=== PATIENT | female | born 1980 | race Caucasian/White ===

== ENCOUNTER 2022-08-02 12:31 | Emergency (ER) | payer OTHER, SELFPAY ==
[2022-08-02 12:31] VITALS: BP 135/96; PULSE 89; RESP 18; TEMP 36.2; O2SAT 98; O2SAT 99; BMI 37.2
--- NOTE | 2022-08-02 12:36 | VDLE_ITS ---
Reason For Study: Pain RIGHT LEFT CFV is compressible, spontaneous, phasic, GSV is normal. competent and demonstrates normal CFV is compressible, spontaneous, phasic, augmentation. competent, and demonstrates normal Procedure augmentation. This is a venous duplex using B-mode, color FV is compressible, spontaneous, phasic, flow and spectral Doppler. competent and demonstrates normal Exam performed portable in ED. augmentation. A preliminary report was called and/or faxed POP V is compressible, spontaneous, phasic, to Dr. Boyle. competent and demonstrates normal augmentation. T/P Trunk is compressible. PTV is compressible. LT PerV is compressible. VL/Venous Duplex US, Unilateral Interpretation Summary There is no evidence of left lower extremity deep vein thrombosis. Left great s aphenous vein appears patent and compressible segmentally. Normal flow patterns right common femoral vein Ordering Physician: Cee Boyle Performed By: Kimmie Carrasco, RENETTA, RVT
--- NOTE | 2022-08-02 12:40 | ED.VIS.LOWEX ---
HPI History of Present Illness Chief Complaint: Lower Extremity Injury Detail of Chief Complaint: Left calf pain Informant: patient Narrative Narrative: Patient presents the emergency department complaint left calf pain times about 3 weeks. Patient states that she developed some discomfort 3 to 4 weeks ago. Then it felt like while she was having discomfort there she was walking the dog and felt a pop in her calf and neck cause more pain discomfort which started to get better until yesterday when she tried to play softball and again felt a similar pop in her calf and had a hard time walking secondary to pain. She denies recent travel or recent surgery. No history of PE or DVT. She is not on oral contraceptive. She is not a smoker. Patient went to urgent care this morning for evaluation and was referred to the emergency department to rule out DVT. PFSH PFSH Home Medications fluoxetine 20 mg capsule mg 08/02/22 [History Last Taken Unknown] pantoprazole 40 mg tablet,delayed release mg PO 08/02/22 [History Last Taken Unknown] Allergy/AdvReac Type Severity Reaction Status Date / Time amoxicillin Allergy Hives Verified 02/18/17 14:51 Social History Smoking Status: Never smoker ROS ROS ED Review of Systems ROS Unobtainable: other Constitutional Constitutional ED: Reports lethargy; Denies chills, fever(s), sweats or weight loss Eyes Eyes: Denies blurry vision, change in vision or diplopia ENT ENT ED: Denies rhinorrhea or sore throat Cardiovascular Cardiovascular: Denies chest pain, orthopnea or racing heartbeat Respiratory/Chest Respiratory/Chest: Denies cough, dyspnea, dyspnea on exertion, orthopnea or sputum Gastrointestinal Gastrointestinal: Denies abdominal pain, diarrhea, nausea or vomiting Genitourinary Genitourinary ED: Denies dysuria, hematuria or urinary frequency Musculoskeletal Musculoskeletal: Reports other Details: Left calf pain ; Denies arthralgias, back pain, myalgias or neck pain Integumentary Denies abscess, Abrasions or rash Neurologic Neurologic: Denies headache(s) or weakness Psychiatric Psychiatric: Denies anxiety, depression or suicidal thoughts Endocrine Endocrinology: Denies polydipsia, polyphagia or polyuria Hematologic/Lymphatic Hematologic/Lymphatic: Denies easy bleeding, easy bruising or lymphadenopathy Allergic/Immunologic Allergic/Immunologic ED: Denies mouth swelling, tongue swelling or urticaria EXAM Physical Exam Const Vital Signs: 08/02/22 12:31 08/02/22 12:31 Temperature 97.1 F L 97.1 F L Temperature Source Temporal Temporal Pulse Rate 89 89 Respiratory Rate 18 18 Blood Pressure 135/96 H 135/96 H Blood Pressure Mean 109 109 Pulse Ox 99 98 Oxygen Delivery Method Room Air Room Air Positive well nourished and well developed General Appearance ED: well developed and NAD HEENT Reports TM's clear and moist mucous membranes normocephalic and atraumatic; Negative for trauma or tenderness Tympanic Membrane ED: Yes TM's clear Eyes PERRL and EOMs intact bilaterally General Eye ED: Negative for pale conjunctiva or scleral icterus Neck no lymphadenopathy, supple and no JVD General: Negative for tenderness Chest Wall inspection of chest normal and palpation of chest normal Chest: Negative for tenderness Resp normal respiratory effort and clear to auscultation bilaterally Effort and Inspection: Negative for respiratory distress or pain with movement Auscultation: Negative for rhonchi, wheezes or diminished lung sounds Cardio regular rate, regular rhythm, S1 normal heart sound, S2 normal heart sound and no murmurs Peripheral Pulses: pulses 2+ throughout GI normal to inspection, nondistended, normoactive bowel sounds, soft to palpation, non-tender, non-distended and no masses Back/Spine no CVA tenderness and no thoracic nor lumbar tenderness Extremity Extremity Narrative: Patient with tenderness palpation over the left calf. No tenderness over the Achilles and no defect in the Achilles noted. There is no ecchymosis or bruising noted there is no erythema or warmth. No ropes or cords palpated. Positive Homans' sign. Neurovascular intact distally. General Extremety ED: Negative for edema General Extremity: Negative for edema Neuro oriented x3, CN's II-XII intact bilaterally, no sensory deficits noted and gait normal Sensorium / Orientation: awake, alert, oriented to person, oriented to place and oriented to time Motor Exam: strength 5/5 throughout and strength abnormal Psych mental status grossly normal Skin no rashes or lesions noted and no wounds MDM MDM MDM Narrative Medical decision making narrative: Patient presents with right calf pain for 3 to 4 weeks. Venous Doppler obtained was negative for DVT. Clinically I suspect a muscle strain. She will be given an Manan wrap. She not want crutches. She will use ibuprofen or Tylenol for discomfort. She is given referral to orthopedics for follow-up within the next 5 to 7 days. Discharge Plan Triage Chief Complaint: Lower Extremity Injury ED Provider: Cee Boyle Dx/Rx/DC Orders Clinical Impression: Strain of right calf muscle Instructions: ED Muscle Strain, Extremity Prescriptions: No Action pantoprazole 40 mg tablet,delayed release (DR/EC) PO Label Comments: TAKE 1 TABLET BY MOUTH DAILY fluoxetine 20 mg capsule Primary Care Provider: Nadege Calderón Referrals: Saroj An DO [Med Staff - Active Staff] - 5-7 Days Care Physician,No Primary [Non-Staff] - Disposition Disposition: Home, Self Care
[2022-08-02 13:42] VITALS: RESP 16
== END 2022-08-02 13:43 | disposition home or self-care (01) ==
PROVIDERS: Emergency Provider Emergency Medicine; PCP Internal Medicine; Visit Provider Emergency Medicine
DX: S86.112A Strain of other muscle(s) and tendon(s) of posterior muscle group at lower leg level, left leg, initial encounter (principal); X58.XXXA Exposure to other specified factors, initial encounter
CPT/HCPCS: 93971; 99282

== ENCOUNTER → 2022-12-01 | Outpatient (CLI) | payer OTHER, SELFPAY ==
[2022-12-01 13:15] LABS: Absolute Lymphocyte Count 1.06 X10^3/uL (0.83-4.51); Absolute Neutrophil Count 3.4 X10^3/uL (2.0-7.7); Basophil# 0.05 X10^3/uL; Eosinophil# 0.13 X10^3/uL; Eosinophils% 2.5 % (0-5); Hematocrit 45.7 % (37-47); Hemoglobin 14.8 g/dL (12.0-15.0); Lymphocyte # 1.06 X10^3/ul (0.83-4.51); Lymphocyte % 20.5 % (19-41); Mean Corp Hgb Conc 32.4 g/dL (32-36); Mean Corpuscular Hgb 29.4 pg (27.0-32.0); Mean Corpuscular Volume 90.7 fL (81-99); Mean Platelet Vol. 11.3 fl (6.2-12.0); Monocyte# 0.49 X10^3/uL; Monocyte% 9.5 % (0-10); NRBC Flagged by Analyzer 0 % (0-5); Neutrophil # 3.43 X10^3/uL (2.7-7.7); Neutrophil % 66.1 % (47-70); POSITIVE COUNT YES; Platelet Count 259 K/mm3 (150-450); RBC Distribution Width CV 12.8 % (11.6-14.6); RBC Distribution Width SD 42.2 fl (35.1-43.9); Red Blood Count 5.04 M/mm3 (4.2-5.4); White Blood Count 5.2 K/mm3 (4.4-11.0)
[2022-12-01 13:39] LABS: Estradiol 90.2 pg/mL; Follicle Stimulating Hormone 5.1 mIU/mL; Luteinizing Hormone 9.3 mIU/mL; Prolactin 5.7 ng/mL; T4 Free Direct 0.89 ng/dL (0.76-1.46); Thyroid Stim Hormone (TSH) 0.87 uIU/mL (0.358-3.74)
[2022-12-01 13:58] LABS: Differential Indicated SCAN CRITERIA MET
[2022-12-01 14:00] LABS: Differential Comment SCANNED
== END | disposition home or self-care (01) ==
LOC: WOBLAB 12:10
PROVIDERS: PCP Internal Medicine; Visit Provider Nurse Practitioner Women's Health
DX: R10.2 Pelvic and perineal pain (principal)
CPT/HCPCS: 36415; 82670; 83001; 83002; 84146; 84439; 84443; 85025

== ENCOUNTER → 2023-01-05 | Outpatient (CLI) | payer OTHER, SELFPAY ==
--- NOTE | 2023-01-05 | POL_PTH ---
PATIENT: YUNI PINEDA LOC: [facility] U#:[id number] AGE/SX: 42/F ROOM: RE01/05/[address]: Dr. Lilly Beaver DO : 1980 BED: DIS: 01/05/2023 SPEC #: [id number] RECD: 01/06/23 10:39 STATUS: LEIDY REMateus #: [id number] VIOLET: 01/05/23 00:[address]: Lilly Beaver DEPT: SURGICAL PATHOLOGY RECD BY: Philip Jackman ENTERED: 01/06/23 10:40 SP TYPE: Polyp OTHR DR: Dr. Nadege Calderón MD Tissues: Uterine cervix, NOS Procedures: Surgery Specimen Level IV HEADER OPERATION: Cervical polypectomy PRE-OP DIAGNOSIS: Cervical polyp TISSUE SUBMITTED: Cervical polyp MICROSCOPIC DIAGNOSIS Cervical polyp, biopsy: Fragments of benign polypoid endocervical tissue, mildly inflamed. AM:grace 01/07/2023 MICROSCOPIC DESCRIPTION Slides are reviewed. GROSS DESCRIPTION Received is one container labeled with the patient's name and not further designated. The specimen consists of multiple fragments of hemorrhagic soft tissue mixed with loja mucoid tissue that in aggregate measure 3.0 x 2.5 x 0.3 cm. The specimen is totally submitted in one cassette. / SJ:grace 01/06/2023 TC:3 CPT: 34306
== END | disposition home or self-care (01) ==
LOC: WOBLAB 14:51
PROVIDERS: PCP Internal Medicine; Visit Provider Student in an Organized Health Care Education/Training Program
DX: N84.1 Polyp of cervix uteri (principal)
CPT/HCPCS: 88305

== ENCOUNTER 2023-07-30 08:03 | Day surgery (SDC) | payer OTHER, SELFPAY ==
--- NOTE | 2023-07-06 17:26 | HP.PCM_ITS ---
History and Physical Date of Admission: 07/30/23 HPI: The patient is a 43 year old female presenting for pre-operative visit. She is scheduled for LAVH with bilateral salpingectomy and possible cystoscopy, for menorrhagia, dysmenorrhea and submucosal uterine fibroid, and post endometrial ablation syndrome on 07/30/23. Procedure discussed along with risks, benefits and complications. Other alternatives discussed for management. Consent form signed? Yes. ? ? PAST MEDICAL HISTORY PAST MEDICAL HISTORY Diagnosis Date ? Degenerative disk disease ? ? lumbar spine, left leg symptoms ? History of seasonal allergies ? ? Irregular menses ? ? Migraine ? ? Sessile serrated polyp of colon 2021 ? ? PAST SURGICAL HISTORY PAST SURGICAL HISTORY Procedure Laterality Date ? COLONOSCOPY SCREENING ? 03/23/2022 ? Sessile serrated polyp ? EGD W/O BRSH SPEC VARICIES INJ ? 03/23/2022 ? Normal ? ENDOMETRIAL ABLTJ THERMAL W/O HYSTEROSCOPIC GUID ? 11/05/2014 ? D&C, hydrothermal ablation ? ESSURE ? 04/26/2007 ? EXTRACTION, ERUPTED TOOTH OR EXPOSED ROOT (ELEVATION AND/OR FORCEPS REMOVAL) ? 04/26/1996 ? PAST SURGICAL HISTORY OF ? 01/05/2023 ? cervical polpyectomy ? RETROGRADE URETHROGRAM ? ? ? sterilization ? ? ? CURRENT MEDICATIONS Current Outpatient Medications Medication Sig Dispense Refill ? levocetirizine (XYZAL) 5 mg tablet Take 1 tablet by mouth once daily. 30 tablet 11 ? pantoprazole DR (PROTONIX) 40 mg tablet Take 1 tablet by mouth once daily. 90 tablet 1 ? fluticasone (FLONASE) 50 mcg/actuation nasal spray Use 2 Sprays in each nostril once daily. Rinse mouth after use. 1 Each 2 ? No current facility-administered medications for this visit. ? ? ALLERGIES: Amoxicillin, Bactrim [Sulfamethoxazole], and Wellbutrin [Bupropion H cl] ? PERSONAL HISTORY: SOCIAL HISTORY Social History ? Tobacco Use ? Smoking status: Never ? Smokeless tobacco: Never Vaping Use ? Vaping Use: Never used Substance Use Topics ? Alcohol use: No ? Drug use: No ? FAMILY HISTORY: FAMILY HISTORY FAMILY HISTORY Problem Relation Age of Onset ? Stroke Mother 69 ? No Known Problems Father ? ? No Known Problems Sister ? ? Hypertension Brother ? ? Hypertension Brother ? ? Heart Brother ? ? Dementia Maternal Grandmother ? ? Alzheimer's Disease Maternal Grandmother ? ? Cancer Maternal Grandfather ? ? stomach ? Colon Cancer Paternal cousin ? ? ? REVIEW OF SYMPTOMS: GENERAL: denies fevers or chills ENDOCRINOLOGY: has not been on steroids Cardiology : denies palpitations or chest pain Respiratory: denies SOB or cough Hematology: denies history of prolonged bleeding or easy bruising or VTE Allergy: Denies history of personal or family history of allergy to anesthesia ? PHYSICAL EXAMINATION: ? VITALS: Blood pressure 110/74, pulse 97, height 5' 0.5 (1.537 m), weight 200 lb (90.7 kg), last menstrual period 05/30/2023, SpO2 98%. ? GENERAL: The patient is well nourished, well hydrated in no acute distress. , The patient is oriented to time, place, and person. LUNGS: Clear to auscultation bilaterally. no wheezes, rhonchi or rales HEART: Regular rate and rhythm, Normal heart sounds, and No murmurs or gallops ? Endometrial biopsy from 05/05/2023 shows benign endometrium with stromal and glandular breakdown ? Pelvic ultrasound from 03/29/2023 shows uterus 9.3 x 5.5 x 6.1 cm that is retroverted. Endometrial complex 1.5 cm. Anterior submucosal uterine fibroid 2.8 x 2.5 x 2.6 cm. Ovaries are both normal in size and appearance. ? IMPRESSION: Abnormal uterine bleeding, submucosal uterine fibroid, post endometrial ablation syndrome, dysmenorrhea ? PLAN: The risks/benefits/alternatives and personal involved for the planned laparoscopic assisted vaginal hysterectomy with bilateral salpingectomy and possible cystoscopy were reviewed with the patient. Her questions were answered to her satisfaction and she desires to proceed. Consent was signed. I reviewed with her postop instructions and expectations. ? ? I have reviewed and updated past medical and surgical history, medications and allergies Assessment & Plan Assessment/Plan (1) Abnormal uterine bleeding (AUB): (2) Post endometrial ablation syndrome: (3) Dysmenorrhea: (4) Submucous uterine fibroid:
--- NOTE | 2023-07-22 14:05 | EKG12_ITS ---
Test Reason : PRE-OP Blood Pressure : / mmHG Vent. Rate : 081 BPM Atrial Rate : 081 BPM P-R Int : 136 ms QRS Dur : 072 ms QT Int : 406 ms P-R-T Axes : 038 005 031 degrees QTc Int : 471 ms Normal sinus rhythm with sinus arrhythmia Nonspecific ST abnormality Abnormal ECG Confirmed by VANDA CERDA, LUIS ([id number]), development editor DANIEL SHIELDS ([id number]) on 07/23/2023 5:56:10 AM Referred By: Nadege Calderón Confirmed By:LUIS DC MD
[2023-07-22 14:24] LABS: Hematocrit 41.9 % (37-47); Mean Corp Hgb Conc 33.4 g/dL (32-36); Mean Corpuscular Hgb 30.2 pg (27.0-32.0); Mean Corpuscular Volume 90.5 fL (81-99); Mean Platelet Vol. 9.9 fl (6.2-12.0); Platelet Count 400 K/mm3 (150-450); RBC Distribution Width SD 42.3 fl (35.1-43.9); Red Blood Count 4.63 M/mm3 (4.2-5.4); White Blood Count 9.7 K/mm3 (4.4-11.0)
[2023-07-22 14:27] LABS: Internal QC Validated? YES +Cl - CLEAR BKGD; Pregnancy, Urine Negative Negative; Record Kit Lot#,Urine Preg HCG0000718086
[2023-07-30] VITALS (11 sets, daily range): BP systolic 118–141; BP diastolic 69–95; PULSE 65–84; RESP 12–18; TEMP 36.5–37; O2SAT 96–100; BMI 37.8
--- NOTE | 2023-07-30 | HYST_PTH ---
PATIENT: YUNI PINEDA [place] [facility] [place][id number] AGE/SX: 43/F ROOM: RE07/30/[address]: Dr. Mihaela Mendez MD : 1980 BED: DIS: 07/30/2023 SPEC #: [id number] RECD: 07/30/23 14:53 STATUS: LEIDY REMateus #: [id number] VIOLET: 07/30/23 00:[address]: Mihaela Mendez DEPT: SURGICAL PATHOLOGY RECD BY: Sachin Hare ENTERED: 08/02/23 10:29 SP TYPE: HYSTERECT OTHR DR: Dr. Nadege Calderón MD Tissues: Uterus, NOS Procedures: Surgery Specimen Level V HEADER OPERATION: ERAS, hysterectomy, LAVH, bilateral salpingectomy PRE-OP DIAGNOSIS: Abnormal uterine bleeding, Post endometrial ablation syndrome, Dysmenorrhea, Submucous uterine fibroid TISSUE SUBMITTED: Uterus, Cervix, Bilateral fallopian tubes MICROSCOPIC DIAGNOSIS Uterus, hysterectomy: Cervix - Nabothian cysts and minimal chronic inflammation Endometrium - Disordered proliferative endometrium Myometrium - Leiomyoma and adenomyosis Right and left fallopian tubes- Benign paratubal cysts AM/mr 08/03/23 MICROSCOPIC DESCRIPTION Slides are reviewed. GROSS DESCRIPTION Received in fixative is one container labeled with the patient's name and designated uterus. The specimen consists of a uterus with attached cervix and detached fallopian tubes. The uterus with cervix measures 9.0 x 7.0 x 5.5 cm and weighs 136 gm. The ectocervix is unremarkable. The cervical os is oval in contour. The anterior serosal surface is ulcerated in an area measuring 4.0 x 4.0cm. The endocervical canal measures 2.8 cm in length and is grossly unremarkable. The elongated endometrial cavity measures 3.5 x 3.0 cm. The reddish-loja, velvety, glistening endometrium measures up to 0.2 cm in thickness. The myometrium measures approximately 2.0 cm in average thickness. No mass lesions are identified. Present free in the specimen container is an ovoid rubbery loja-white mass measuring 4.0 x 2.5 x 2.5 cm in grossly resembling a leiomyoma. Serial sections of this nodule reveal homogenous loja-white cut surfaces without areas of cyst formation, necrosis or hemorrhage. The right and left fallopian tubes have an average length of 4.0 cm and an average diameter of 0.6 cm. Fimbrial ends appear to be grossly unremarkable. One fallopian tube contains a paratubal cyst measuring 0.8 cm and containing clear fluid. Helicopter Pilot sections are submitted in 10 cassettes as follows: 1 - anterior cervix, 2 - posterior cervix, 3 & 4 - anterior uterine wall, 5 & 6 - posterior uterine wall, 7-8 - Nodule free in the container, 9 - Fallopian tube without paratubal cyst, 10 - Fallopian tube with paratubal cyst. / AM: 08/02/23 TC:1 CPT: 59964
[2023-07-30] MEDS: Magnesium 1 GM over 15 mins IV (08:37)
[2023-07-30] MEDS: Lactated Ringers 1,000 ML 40 ML IV (08:37)
[2023-07-30] MEDS: Scopolamine 1mg/72hr Patch 1 PATCH TD (08:38)
[2023-07-30] MEDS: Enoxaparin 40 MG/0.4 ML Syringe SC (08:39)
[2023-07-30] MEDS: Celecoxib 200 MG Capsule 400 MG PO (08:39)
[2023-07-30] MEDS: Phenazopyridine 95 MG Tablet 190 MG PO (08:39)
[2023-07-30] MEDS: Gabapentin 600 MG Tablet PO (08:39)
[2023-07-30] MEDS: Acetaminophen 500 MG Tablet 1000 MG PO (08:40)
[2023-07-30 08:46] LABS: Internal QC Validated? YES +Cl - CLEAR BKGD; Pregnancy, Urine Negative Negative; Record Kit Lot#,Urine Preg HCG0000718086
[2023-07-30 09:09] LABS: Bedside Glucose 83 mg/dL (74-106)
[2023-07-30] MEDS: Cefazolin 2 GM in 0.9% Normal Saline (100mL Bag) 100 ML IV (10:48)
[2023-07-30] MEDS: dexAMETHasone 4 MG/ML Vial 8 MG IV (10:53)
[2023-07-30] MEDS: Lidocaine 1%/Epi 1:200 (30ml) 30 ML AMPUL (11:40)
[2023-07-30] MEDS: Ondansetron 4 MG/2 ML Vial IV (12:20)
[2023-07-30] MEDS: Bupivacaine Mpf 0.5% 30 ML VIAL (12:24)
--- NOTE | 2023-07-30 12:28 | PCM.OPRPT ---
Report of Operation Date of Procedure: 07/30/23 Pre-Operative Diagnosis: Abnormal uterine bleeding, uterine fibroid, postendometrial ablation syndrome Post-Operative Diagnosis: same Surgery/Procedure Performed:: LAVH, bilateral salpingectomy Description of Surgical Findings:: enlarged boggy uterus, normal cervix and vagina Surgeon: Mihaela Mendez binding cutter synthetic cloth: Kary Rodriguez Type of Anesthesia: General Anesthesiologist: Carmelo Sanchez Special Medications: none Specimen's removed: uterus, cervix, bilateral fallopian tubes Drains: none Estimated Blood Loss (mL): 50 Fluids Replaced: 1400 Description of Procedure: The patient was taken to the operating room where she was prepped and draped in the dorsal lithotomy position. Her arms were tucked to the side and padded and her legs were placed in the yellowfin stirrups. Care was taken to ensure that she was placed in a neurologically safe and neutral position. A weighted speculum was placed in the vagina and the anterior lip of the cervix was grasped with a single-tooth tenaculum. The uterus sounded to 8 centimeters. The ZAccela uterine manipulator was placed and secured. The Sheppard catheter was placed to straight drain. Attention was turned to the abdominal portion of the case. Before skin incisions were made they were infiltrated with 0.5% Marcaine solution for local anesthetic. A 5 mm intraumbilical incision was made and while tenting the anterior abdominal wall up with towel clamps a 5 mm blade less trocar and sleeve were advanced directly into the peritoneal cavity using the Visiport. Peritoneal placement was confirmed with the laparoscope the pneumoperitoneum was created, and the underlying abdominal contents were intact. The patient was placed in Trendelenburg and the above findings were noted. Right and left lateral 5 mm trochars were placed under direct visualization without difficulty. The antimesenteric portion of the tube was clamped sealed and transected serially on both sides with the LigaSure device. The round ligaments were clamped sealed and transected and a window was made in the peritoneum. The utero-ovarian ligaments were then clamped, sealed and transected with the LigaSure device and the pedicles were hemostatic The bladder flap was dissected down with the LigaSure device and blunt dissection and the uterine arteries were then skeletonized. The uterine arteries were clamped, sealed and transected on both sides with the LigaSure device. At this point the pedicles were all examined and found to be hemostatic. Attention was turned to the vaginal portion of the case. 1% lidocaine with dilute epinephrine solution was used to infiltrate the anterior vaginal epithelium over the cervix. An incision was made from 3 to 9:00 across the anterior vaginal epithelium and the vaginal epithelium was dissected back with blunt sharp dissection. The anterior colpotomy incision was made. The vaginal epithelium on each side of the cervix at 3 and 9:00 was clamped, transected and suture ligated. The next pedicle contained the anterior peritoneum and part of the cardinal ligament. The pedicle was was clamped with a Whitney clamp, transected and suture-ligated. Hemostasis was noted. The uterine fundus was brought through the anterior colpotomy incision. The uterosacral ligaments and vaginal cuff were secured with Whitney clamps. The pedicles were transected. The uterus and cervix were then amputated and removed. The pedicles were secured with an 0 Vicryl suture. At this point, the pedicles were all examined and hemostasis was assured. A [id number] was needed in the midline and the vaginal cuff between the uterosacrals to tack the peritoneum down to the posterior vaginal wall. The vaginal cuff was then closed in a horizontal fashion with interrupted 0 Vicryl [id number] sutures. Care was taken to secure the vagina to the uterosacral ligaments. A sponge stick was placed in the vagina to help place traction against the vaginal cuff. The laparoscope was reinserted into the abdomen and the pneumoperitoneum was re-created. The pedicles were reexamined and found to be hemostatic. The vaginal cuff was hemostatic. There was a small amount of bleeding from the left side, it was just oozing. Some hemoblast was placed over this and a wet Telfa was used to hold pressure for 2 minutes. The site was then hemostatic. Suction dressage instructor had been used before this to irrigate all the pedicles and ensure there is no active bleeding. Hemoblast was then placed over the vaginal cuff and the pedicles. The right and left lateral ports were taken out and the sites were hemostatic. The pneumoperitoneum was released and even under low pressure there was no bleeding of any of the pedicles are vaginal cuff. The umbilical port was removed. The umbilical skin incisions were closed with Monocryl suture and skin glue. The vaginal instruments were removed by me and a vaginal sweep was completed by me. The entire procedure was performed by me with assistance. Dr. Rodriguez provided tissue manipulation, camera guidance, uterine manipulation and assistance with suturing during the procedure.. There were no qualified residents available for this procedure. All sponge lap and needle counts were correct and the patient was transferred to the recovery room in stable condition. Grafts/Implants Used: none Procedure Start Time: 11:08 Procedure Stop Time: 12:27 Complications none Admit VTE Documentation VTE Present on Admission: No VTE Mechan Device Prophylaxis: SCD's VTE Pharm Prophylaxis ordered?: No Reason prophylaxis not ordered:: Procedure Not Indicated
--- NOTE | 2023-07-30 12:37 | PCM.DC ---
Discharge Instructions Diet Discharge Diet: Light diet - advance as tolerated Activity Discharge Activity: May Not Drive (For 7 to 10 days or when you are not needing pain medication.) May shower in (days): 1 May resume sexual activity in: 6-8 weeks and - (Nothing in your vagina for 6 weeks. No vaginal or anal intercourse for 6-8 weeks) Dressing / Incision Call your doctor if your incision/area has: Continuous Slow Oozing, Sudden Increased Bleeding, Foul Smelling Discharge and Swelling at the incision site Call your doctor if you observe: Fever of 101 or Higher and Using more than 1 pad per hour Cleanse incision/area with: Soap & Water and - (Your incisions have skin glue, it can get wet, leave the glue on until it falls off. ) Follow Up Care Please Follow Up With: Mihaela Mendez MD When: With my office in 1-2 and 6 weeks or as needed. [phone] call or send a Converser message with nonurgent questions. Test Results: Test results from this visit will be discussed in further detail at your follow-up appointment, if applicable. Discharge Plan Admission Primary Reason for Your Visit: Laparoscopic-assisted vaginal hysterectomy with removal of fallopian tubes Attending Provider: Mihaela Mendez Primary Care Provider: Nadege Calderón Discharge Orders/Prescriptions Prescriptions: New ibuprofen [ibuprofen] 600 MG tablet 600 mg PO Q6H PRN (Reason: Pain) 20 Days Qty: 60 1RF oxycodone 5 MG tablet 5 mg PO Q6H PRN PRN (Reason: severe pain) 5 Days Qty: 8 0RF Continued pantoprazole 40 mg tablet,delayed release (DR/EC) 40 mg PO DAILY Patient Comments: TAKE 1 TABLET BY MOUTH DAILY fluticasone propionate 50 mcg/actuation spray,suspension 2 spray INTRANASAL DAILY PRN (Reason: nasal congestion) levocetirizine 5 mg tablet 5 mg PO DAILY Probiotic 10 billion cell capsule 100 mmu cells PO DAILY Other Ambulatory Orders: 12 Lead EKG (Routine) Timeframe: [id number] Location: None Selected Ordered By: Dr. Lonnie Regalado Referrals / Follow Up: Nadege Calderón MD [Primary Care Provider] - Disposition Disposition (needs filled in before D/C Order can be placed): Home, Self Care
[2023-07-30] MEDS: Lactated Ringers @ 40 MLS/HR 40 ML IV ×2 (13:07→14:05)
== END 2023-07-30 16:17 | disposition home or self-care (01) ==
LOC: SDC 08:06 → AC 08:06
PROVIDERS: PCP Internal Medicine; Referring Provider Obstetrics & Gynecology; Visit Provider Obstetrics & Gynecology
PROC: 0UT9FZZ Resection of Uterus, Via Natural or Artificial Opening With Percutaneous Endoscopic Assistance (ICD-10-PCS; CPT 58552; principal; 2023-07-30 09:50)
DX: D25.0 Submucous leiomyoma of uterus (principal); N94.6 Dysmenorrhea, unspecified; N93.9 Abnormal uterine and vaginal bleeding, unspecified; N92.0 Excessive and frequent menstruation with regular cycle; N99.85 Post endometrial ablation syndrome; N88.8 Other specified noninflammatory disorders of cervix uteri; N80.03 Adenomyosis of the uterus; N83.8 Other noninflammatory disorders of ovary, fallopian tube and broad ligament; N72 Inflammatory disease of cervix uteri; K21.9 Gastro-esophageal reflux disease without esophagitis; Z79.899 Other long term (current) drug therapy
CPT/HCPCS: 58552; 00952; 36415; 81025; 82962; 83735; 85027; 86850; 86900; 86901; 88307; 93005; J7120; J2405; J3475